=== PATIENT | male | born 1935 | race Caucasian/White ===

== ENCOUNTER → 2017-03-29 | Outpatient (CLI) | payer MEDICARE, OTHER | LOC: ZLAB.ENT 16:18 | DX: L72.3 Sebaceous cyst (principal) ==

== ENCOUNTER 2020-08-12 10:21 | Day surgery (SDC) | payer MEDICARE, OTHER ==
[~2020-08-12] VITALS: Ht 175.3 cm; Wt 102.5 kg
[2020-08-12] VITALS (7 sets, daily range): BP systolic 108–150; BP diastolic 53–66; PULSE 59–64; TEMP 97.9–98
[2020-08-12] MEDS ORDERED: LANTUS SOLOS100 U/ML SQ (11:46)
[2020-08-12] MEDS ORDERED: TYLENOL 500MG500 MG PO (11:47)
[2020-08-12] MEDS ORDERED: MIRALAX510G PO (11:49)
[2020-08-12] MEDS ORDERED: GLUCOSAMINE & C1 TAB PO (11:50)
[2020-08-12] MEDS ORDERED: ASPIRIN 81M81 MG/TA2 PO (11:51)
[2020-08-12] MEDS ORDERED: HYTRIN10 M1 PO (11:52)
[2020-08-12] MEDS ORDERED: ZYLOPRIM 300MG300 MG PO (11:53)
[2020-08-12] MEDS ORDERED: FERROUS SU325 MG/TAB PO (11:54)
[2020-08-12] MEDS ORDERED: PROSCAR 5MG5 MG (11:55)
[2020-08-12] MEDS ORDERED: ZOCOR 80MG80 MG PO (11:56)
[2020-08-12] MEDS ORDERED: COREG12.5 MG PO (11:58)
[2020-08-12] MEDS ORDERED: IMDUR 60MG60 MG/TAB PO (11:58)
[2020-08-12] MEDS ORDERED: FLONASE NASAL S16 GM NS (11:59)
[2020-08-12] MEDS ORDERED: CALCITRIOL PO (12:01)
--- NOTE | 2020-08-12 13:31 | NUR ---
Initial visit; Patient departed early for surgical procedure, Sample Body Builder spoke with his daughter and offered encouragement and God's blessings for James and his family.
--- NOTE | 2020-08-12 13:57 | NUR ---
PATIENT TRANSPORTED PER CART FROM PACU TO BAY 3 ACCOMPANIED BY THIS NURSE. MONITORS APPLIED. VSS. 02 CONTINUES AT 2 LITERS. PATIENT DENIES DISCOMFORT AND NAUSEA. PATIENT STATES THROAT IS SORE. DAUGHTER AT BEDSIDE.
--- NOTE | 2020-08-12 14:00 | NUR ---
VSS ON 2 LITERS. PATIENT GIVEN ORANGE JUICE AND MUFFIN. DRESSING TO ABD CDI. PATIENT DRINKS SOME JUICE. DAUGHTER HELPS.
--- NOTE | 2020-08-12 14:18 | NUR ---
VSS. O2 REMOVED AND PATIENT ON ROOM AIR. PATIENT STATES THAT MUFFIN IS SORE TO THROAT. PATIENT CONTINUES TO DENY DISCOMFORT. PATIENT GIVEN PUDDING TO EAT WITH HELP OF DAUGHTER.
--- NOTE | 2020-08-12 14:48 | NUR ---
VSS ON ROOM AIR. PATIENT EATS PUDDING WITHOUT PROBLEMS. PATIENT DENIES NAUSEA AND DISCOMFORT BESIDES SORE THROAT. ACCU CHECK --91. PATIENT STATES THAT HE DOES NOT PEE MUCH AT HOME. HE DENIES FEELING THE NEED TO VOID. DRESSING TO ABDOMEN IN CDI,
--- NOTE | 2020-08-12 15:05 | NUR ---
VSS ON ROOM AIR. DISCHARGE INSTRUCTIONS GIVEN VERBAL AND DISCHARGE PACKET PROVIDED. REVIEWED PATIENT'S SITE WITH DAUGHTER. DAUGHTER VERBALIZED UNDERSTANDING. IV SITE DC'D WITH CATHETER TIP INTACT. PRESSURE AND BANDAGE APPLIED. DAUGHTER AND NURSE ASSIST PATIENT WITH CHANGING INTO STREET CLOTHES. 1530 DISCHARGED PER WHEEL CHAIR ACCOMPANIED BY NURSE TO PRIVATE VECHILE DRIVEN BY DAUGHTER.
== END 2020-08-12 15:30 | disposition home or self-care (01) ==
LOC: SDCO 10:21
DX: E11.22 Type 2 diabetes mellitus with diabetic chronic kidney disease (principal); N18.5 Chronic kidney disease, stage 5; I12.0 Hypertensive chronic kidney disease with stage 5 chronic kidney disease or end stage renal disease; E66.9 Obesity, unspecified; E78.00 Pure hypercholesterolemia, unspecified; E78.5 Hyperlipidemia, unspecified; I25.10 Atherosclerotic heart disease of native coronary artery without angina pectoris; G47.33 Obstructive sleep apnea (adult) (pediatric); M19.90 Unspecified osteoarthritis, unspecified site; M10.9 Gout, unspecified; G47.30 Sleep apnea, unspecified; Z79.82 Long term (current) use of aspirin; Z79.899 Other long term (current) drug therapy; Z96.659 Presence of unspecified artificial knee joint; Z88.8 Allergy status to other drugs, medicaments and biological substances; Z88.5 Allergy status to narcotic agent; Z20.822 Contact with and (suspected) exposure to COVID-19; Z99.89 Dependence on other enabling machines and devices
CPT/HCPCS: C1750; J0690; J2405; J2704; J2710; J3010; J7030

== ENCOUNTER 2020-09-25 06:39 | Day surgery (SDC) | payer MEDICARE, OTHER ==
[~2020-09-25] VITALS: Ht 180.3 cm; Wt 102.5 kg
[~2020-09-25 06:39] MED LIST: ASPIRIN 81M81 MG/TA2 PO; CALCITRIOL PO; COREG12.5 MG PO; FERROUS SU325 MG/TAB PO; FLONASE NASAL S16 GM NS; GLUCOSAMINE & C1 TAB PO; HYTRIN10 M1 PO; IMDUR 60MG60 MG/TAB PO; LANTUS SOLOS100 U/ML SQ; MIRALAX510G PO; PROSCAR 5MG5 MG; TYLENOL 500MG500 MG PO; ZOCOR 80MG80 MG PO; ZYLOPRIM 300MG300 MG PO
[2020-09-25 07:26] VITALS: BP 130/63; PULSE 64; TEMP 97.7
[2020-09-25 07:36] LABS: CALCIUM 9.6 mg/dL (8.4-10.2); CREATININE, serum 3.93 (0.66-1.25); POTASSIUM 4.3 mmol/L (3.4-5.0)
[2020-09-25] MEDS ORDERED: LANTUS SOLOS100 U/ML SQ (08:03)
[2020-09-25] MEDS ORDERED: TRIAMCINOLONE (08:06)
[2020-09-25] MEDS ORDERED: MIRALAX PA17 GM/Dose PO (08:07)
[2020-09-25] MEDS ORDERED: CBD OIL (08:11)
[2020-09-25] MEDS ORDERED: GENTAM TOP (08:17)
[2020-09-25 11:00] VITALS: BP 135/60; PULSE 63; TEMP 97.4
--- NOTE | 2020-09-25 11:00 | NUR ---
Pt returns to [facility] from PACU, alert and oriented, VSS, denies pain. Pt request pudding and apple juice. Dressings clean and dry. Warm blankets provided.
[2020-09-25 11:15] VITALS: BP 121/61; PULSE 59
[2020-09-25 11:30] VITALS: BP 117/54; PULSE 61
--- NOTE | 2020-09-25 11:30 | NUR ---
Pt awake and alert and asking when he can go home. Pt does not feel the urge to void and is a dialysis pt. VSS. Denies pain or nausea.
[2020-09-25 11:45] VITALS: BP 129/62; PULSE 61
--- NOTE | 2020-09-25 12:10 | NUR ---
Discharge instructions provided and IV d/c'd to right wrist. Pt gets dressed with the assistance of his son-in-law and is taken to private car via wheelchair and left in care of his son-in-law.
== END 2020-09-25 12:10 | disposition home or self-care (01) ==
LOC: SDCO 06:39
PROVIDERS: Surgery
DX: N18.6 End stage renal disease (principal); I12.0 Hypertensive chronic kidney disease with stage 5 chronic kidney disease or end stage renal disease; E11.22 Type 2 diabetes mellitus with diabetic chronic kidney disease; I25.10 Atherosclerotic heart disease of native coronary artery without angina pectoris; I10 Essential (primary) hypertension; E78.5 Hyperlipidemia, unspecified; G47.33 Obstructive sleep apnea (adult) (pediatric); M19.90 Unspecified osteoarthritis, unspecified site; E11.9 Type 2 diabetes mellitus without complications; E78.00 Pure hypercholesterolemia, unspecified; Z99.2 Dependence on renal dialysis; Z79.82 Long term (current) use of aspirin; Z79.899 Other long term (current) drug therapy; Z99.89 Dependence on other enabling machines and devices; Z79.4 Long term (current) use of insulin; Z87.891 Personal history of nicotine dependence
CPT/HCPCS: J0690; J1644; J2405; J2704; J3010; J7030

== ENCOUNTER → 2020-11-06 | Outpatient (CLI) | payer MEDICARE, OTHER ==
[~2020-11-06] MED LIST changes: +CBD OIL; +GENTAM TOP; +LOPRESSOR 225 MG/TAB PO; +MIRALAX PA17 GM/Dose PO; +TRIAMCINOLONE; +TUMS500 MG
== END ==
LOC: COL.VAS 12:13
DX: N18.6 End stage renal disease (principal); Z99.2 Dependence on renal dialysis

== ENCOUNTER 2020-11-27 08:42 | Day surgery (SDC) | payer MEDICARE, OTHER ==
[~2020-11-27] VITALS: Ht 180.3 cm; Wt 97.5 kg
[~2020-11-27 08:42] MED LIST changes: -LOPRESSOR 225 MG/TAB PO; -TUMS500 MG
[2020-11-27 10:16] LABS: CALCIUM 9.9 mg/dL (8.4-10.2); CREATININE, serum 3.24 (0.66-1.25); POTASSIUM 3.8 mmol/L (3.4-5.0)
[2020-11-27] MEDS ORDERED: LOPRESSOR 225 MG/TAB PO (10:49)
[2020-11-27] MEDS ORDERED: TUMS500 MG (10:49)
[2020-11-27 10:56] VITALS: BP 115/62; PULSE 77; TEMP 97.5
[2020-11-27 12:22] VITALS: BP 114/51; PULSE 77; TEMP 97.3
--- NOTE | 2020-11-27 12:22 | NUR ---
Pt returns to [facility] from the OR, report received from PLANNING MANAGER and OR, RN. Pt awake and alert. VSS. Kerlix noted to right upper arm for some slight oozing in the OR. Pt denies pain. at bedside. Call light in reach.
[2020-11-27 12:35] VITALS: BP 108/58; PULSE 77
--- NOTE | 2020-11-27 12:35 | NUR ---
Pt tolerates pudding and juice well, denies pain. Just wants to rest for a little while. VSS.
[2020-11-27 12:50] VITALS: BP 111/51; PULSE 77
[2020-11-27 13:05] VITALS: BP 127/53; PULSE 76
--- NOTE | 2020-11-27 13:05 | NUR ---
Pt doing well and wanting to go home. VSS. IV discontinued and pt gets dressed with the help of his . Discharge instructions provided to pt and his , understanding verbalized, thrill felt to right upper arm and educated on and felt as well. Pt taken via wheelchair and left in care of his at 1335.
== END 2020-11-27 13:35 | disposition home or self-care (01) ==
LOC: SDCO 08:42
PROVIDERS: Surgery
DX: N18.6 End stage renal disease (principal); I13.11 Hypertensive heart and chronic kidney disease without heart failure, with stage 5 chronic kidney disease, or end stage renal disease; I25.10 Atherosclerotic heart disease of native coronary artery without angina pectoris; E11.22 Type 2 diabetes mellitus with diabetic chronic kidney disease; E66.9 Obesity, unspecified; E78.00 Pure hypercholesterolemia, unspecified; E11.21 Type 2 diabetes mellitus with diabetic nephropathy; E78.5 Hyperlipidemia, unspecified; M19.90 Unspecified osteoarthritis, unspecified site; M10.9 Gout, unspecified; G47.30 Sleep apnea, unspecified; Z49.01 Encounter for fitting and adjustment of extracorporeal dialysis catheter; Z79.899 Other long term (current) drug therapy; Z99.89 Dependence on other enabling machines and devices; Z79.82 Long term (current) use of aspirin; Z83.3 Family history of diabetes mellitus; Z82.49 Family history of ischemic heart disease and other diseases of the circulatory system
CPT/HCPCS: J0690; J1644; J2405; J2704

== ENCOUNTER 2021-06-23 10:30 | Outpatient (CLI) | payer MEDICARE, OTHER ==
[~2021-06-23] VITALS: Ht 180.3 cm; Wt 96.7 kg
[~2021-06-23 10:30] MED LIST changes: +LOPRESSOR 225 MG/TAB PO; +TUMS500 MG
[2021-06-23 11:58] VITALS: BP 123/59; PULSE 60; TEMP 98
[2021-06-23] MEDS ORDERED: TRIAM OI 0.1 80 TOP (12:07)
[2021-06-23] MEDS ORDERED: MIRALAX238G PO (12:08)
[2021-06-23 14:00] VITALS: BP 139/61; PULSE 61
[2021-06-23 14:15] VITALS: BP 128/86; PULSE 60
[2021-06-23 14:30] VITALS: BP 111/62; PULSE 62
[2021-06-23 15:00] VITALS: BP 118/80; PULSE 62
== END 2021-06-23 15:20 | disposition home or self-care (01) ==
LOC: COL.CAR 10:30
DX: T82.898A Other specified complication of vascular prosthetic devices, implants and grafts, initial encounter (principal); N18.6 End stage renal disease; Z99.2 Dependence on renal dialysis; Z79.891 Long term (current) use of opiate analgesic
CPT/HCPCS: J1644; Q9967